=== PATIENT | male | born 1975 | race African-American/Black ===

== ENCOUNTER 2022-08-05 14:28 | Emergency (ER) | payer BC ==
[~2022-08-05] VITALS: Ht 185.4 cm; Wt 91.0 kg
[2022-08-05 14:39] VITALS: BP 151/92
[2022-08-05] MEDS ORDERED: IBUP-2029 MT (17:28)
== END 2022-08-05 21:30 | disposition left against medical advice (07) ==
LOC: ER 14:28
DX: M79.661 Pain in right lower leg (principal); M25.551 Pain in right hip; M25.512 Pain in left shoulder
CPT/HCPCS: 73502; 76857; 93971; 99284

== ENCOUNTER 2022-11-17 14:51 | Emergency (ER) | payer BC ==
[~2022-11-17] VITALS: Ht 185.4 cm; Wt 93.0 kg
[~2022-11-17 14:51] MED LIST: IBUP-2029 MT
[2022-11-17] MEDS ORDERED: IBUPROFEN 600MG TABLET PO ONE (18:45)
[2022-11-17] MEDS ORDERED: BACITRACIN 15GM TUBE TOP ONE (18:45)
[2022-11-17] MEDS ORDERED: AMOX1TAB16 MT (18:47)
[2022-11-17] MEDS ORDERED: MUPI15CR11 TP (18:48)
[2022-11-17 19:21] VITALS: BP 118/72
== END 2022-11-17 19:27 | disposition home or self-care (01) ==
LOC: ER 14:51
DX: L03.031 Cellulitis of right toe (principal); Z79.899 Other long term (current) drug therapy
CPT/HCPCS: 99283

== ENCOUNTER 2024-09-02 16:28 | Emergency (ER) | payer BC ==
[~2024-09-02] VITALS: Ht 185.4 cm; Wt 100.0 kg
[~2024-09-02 16:28] MED LIST changes: +AMOX1TAB16 MT; +MUPI15CR11 TP
[2024-09-02 16:33] VITALS: O2SAT 100
[2024-09-02] MEDS ORDERED: TRIA60LO12 TP (17:38)
[2024-09-02 17:40] VITALS: BP 147/90; PULSE 76; RESP 16; TEMP 37.00296; O2SAT 100
== END 2024-09-02 18:06 | disposition home or self-care (01) ==
LOC: ER 16:28
DX: L30.9 Dermatitis, unspecified (principal); E78.00 Pure hypercholesterolemia, unspecified; Z79.899 Other long term (current) drug therapy; Z98.890 Other specified postprocedural states
CPT/HCPCS: 99283